=== PATIENT | male | born 1965 | race Caucasian/White ===

== ENCOUNTER 2022-12-15 09:10 | Emergency (ER) | payer OTHER, SELFPAY ==
[2022-12-15 09:11] VITALS: BP 209/101; PULSE 94; RESP 16; TEMP 36.6; O2SAT 100; BMI 23.9
--- NOTE | 2022-12-15 09:13 | ED.RN ---
VERIFIED PT SS#, ADDRESS, FULL NAME INCLUDING MIDDLE, ALL ACCURATE. BIRTHDATE WAS ON EXISITING CHART 1965. PT REPORTS HIS BIRTHDATE IS 1965
--- NOTE | 2022-12-15 09:26 | EKG12_ITS ---
Test Reason : DIZZINESS Blood Pressure : / mmHG Vent. Rate : 078 BPM Atrial Rate : 078 BPM P-R Int : 158 ms QRS Dur : 088 ms QT Int : 358 ms P-R-T Axes : 063 017 053 degrees QTc Int : 408 ms Normal sinus rhythm with sinus arrhythmia Normal ECG Confirmed by KAIA BONILLA, JOÃO ([id number]), commercial production editor TRINA KEMP ([id number]) on 12/18/2022 11:17:47 AM Referred By: Confirmed By:JOÃO MARTI MD
--- NOTE | 2022-12-15 09:27 | EX.ED.DYSGE1 ---
HPI History of Present Illness Chief Complaint: Hypertension Detail of Chief Complaint: Not feeling right. Purchased a blood pressure machine. Pressures elevated Informant: patient Onset/Context/Timing Onset: Today and Yesterday Context: - (Unknown) Timing: Continuous Quality: Not feeling right Location: Generalized Current Severity: Mild Maximum Severity: Moderate Worsened by: Nothing Relieved by: Nothing Associated Symptoms Associated Symptoms: Nothing Narrative Narrative: Patient is a 56-year-old male who is a smoker and drinks heavily on weekends who presents because of multiple elevated blood pressure readings. Has not seen a physician in 30 years. He denies drug use. He complains of head fullness. Does not complain of headache. He denies double vision, blurred vision loss of vision. He denies ringing's ears or decreased hearing. He denies trouble with speech or swallowing. He denies problems with balance or coordination. He denies weakness of his upper or lower extremities. He denies altered sensation of his upper or lower extremities. He states he has not had a drink since Wednesday. Prior similar symptoms: No Recent Illness/Hospitalization: No PFSH PFSH Medical History no medical history no medical history Home Medications lisinopril 10 mg tablet 10 mg PO DAILY #30 tabs 12/15/22 [Rx Last Taken Unknown] Allergy/AdvReac Type Severity Reaction Status Date / Time No Known Allergies Allergy Verified 12/15/22 09:11 Social History (Updated 12/15/22 @ 09:[address] Jcarlos El MD) household members: none Smoking Status: Current every day smoker tobacco type: cigarettes alcohol intake: current alcohol intake frequency: 3 or more drinks per day substance use type: does not use ROS ROS ED Constitutional Constitutional ED: Denies chills, fever(s), subjective, sweats or weight loss Eyes Eyes: Denies blurry vision, change in vision or diplopia ENT ENT ED: Denies ear pain, rhinorrhea or sore throat Cardiovascular Cardiovascular: Denies chest pain, palpitations or racing heartbeat Respiratory/Chest Respiratory/Chest: Denies cough, dyspnea or dyspnea on exertion Gastrointestinal Gastrointestinal: Denies abdominal pain, nausea or vomiting Genitourinary Genitourinary ED: Denies dysuria, hematuria or urinary frequency Musculoskeletal Musculoskeletal: Reports other Details: Chronic left pectoral/shoulder pain due to prior injury ; Denies arthralgias, back pain, myalgias or neck pain Integumentary Denies rash Neurologic Neurologic: Reports headache(s); Denies paresthesias or weakness Psychiatric Psychiatric: Denies anxiety Hematologic/Lymphatic Hematologic/Lymphatic: Reports systems reviewed and no addt'l complaints, except as documented EXAM Physical Exam Const Vital Signs: 12/15/22 09:11 12/15/22 09:52 12/15/22 10:30 Temperature 97.8 F Temperature Source Temporal Pulse Rate 94 66 Respiratory Rate 16 16 Respiratory Pattern Normal Blood Pressure 209/101 H 151/90 H Blood Pressure Mean 137 110 Pulse Ox 100 98 Oxygen Delivery Method Room Air Room Air 12/15/22 11:30 Temperature Temperature Source Pulse Rate 70 Respiratory Rate 16 Respiratory Pattern Blood Pressure 158/98 H Blood Pressure Mean 118 Pulse Ox 98 Oxygen Delivery Method Room Air Positive well nourished and well developed General Appearance ED: well developed and NAD; Negative for cyanotic, diaphoretic or pallor HEENT Reports dry mucous membranes HEENT Narrative: Head is atraumatic normocephalic. Ears are normal. TMs are normal. Nares patent. Uvula is midline. There is no deviation tongue with protrusion. Mouth ED: Yes dry mucous membranes Mouth: dry mucous membranes Eyes PERRL and EOMs intact bilaterally Neck no lymphadenopathy, supple and no JVD Neck Narrative: No carotid bruit right or left Chest Wall inspection of chest normal and palpation of chest normal Resp normal respiratory effort and clear to auscultation bilaterally Cardio regular rate, regular rhythm, S1 normal heart sound, S2 normal heart sound and no murmurs GI normal to inspection, nondistended, normoactive bowel sounds, non-tender, non-distended and no masses; Negative for hepatosplenomegaly Back/Spine no CVA tenderness Extremity normal to inspection General Extremety ED: Negative for edema or tenderness General Extremity: Negative for edema Neuro oriented x3, CN's II-XII intact bilaterally and no sensory deficits noted Neuro Narrative: There is no dysmetria. Bicep, brachialis, triceps, patella and ankle reflex are 2+ and symmetric. There is no clonus?. Patient is awake but not necessarily alert. He stated he was 57 years of age when he is 56. He did know month, day of the week, day of the month. Motor Exam: strength 5/5 throughout Psych mental status grossly normal Skin no rashes or lesions noted and skin turgor normal General Skin Exam: Negative for elasticity normal, jaundice or pallor MDM MDM MDM Narrative Medical decision making narrative: Since patient's complaint of head discomfort has nystagmus with elevated blood pressure and has not seen a physician in 30 years we will obtain baseline blood work EKG and CT looking for evidence of endorgan dysfunction. We will also monitor blood pressure. His neuro exam was nonfocal. History & Record Review Additional record(s) reviewed:: No prior records Lab Data Attestation: I reviewed the patient's lab results. Lab results narrative: There is no evidence of endorgan dysfunction. Labs: Laboratory Results - last 24 hr 12/15/22 12/15/22 09:50 10:34 WBC 4.9 RBC 5.31 Hgb 15.4 Hct 46.3 MCV 87.2 MCH 29.0 MCHC 33.3 RDW Std Deviation 40.6 RDW Coeff of Adrian 12.8 Plt Count 302 MPV 10.0 Immature Gran % (Auto) 0.200 Neut % (Auto) 62.3 Lymph % (Auto) 26.5 Rankin % (Auto) 8.6 Eos % (Auto) 2.0 Baso % (Auto) 0.4 Absolute Neuts (auto) 3.1 Absolute Lymphs (auto) 1.30 Nucleated RBC % 0 Sodium 137 Potassium 4.2 Chloride 105 Carbon Dioxide 27.0 Anion Gap 5 BUN 17 Creatinine 0.83 Estim Creat Clear Calc 100.17 Est GFR (MDRD) Af Amer 122 Est GFR (MDRD) Non-Af 101 BUN/Creatinine Ratio 20.5 H Glucose 104 Calcium 9.2 Urine Color Yellow Urine Clarity Clear Urine pH 8.0 Ur Specific [place] 1.015 Urine Protein 15 H Urine Glucose (UA) Normal Urine Ketones Negative Urine Occult Blood Negative Urine Nitrite Negative Urine Bilirubin Negative Urine Urobilinogen Normal Ur Leukocyte Esterase 25 H Urine RBC 0 SEEN Urine WBC 0-5 SEEN Ur Squamous Epith Cells 0 SEEN Urine Bacteria 0 SEEN Urine Mucus 0 SEEN Ethyl Alcohol < 3.0 Radiography Diagnostic Testing: Clinical Impression(s) from Imaging Studies Brain CT 12/15/22 09:54 IMPRESSION: No acute intracranial process. Electronically Signed: Maco Ragland MD at 10:28 EDT , EKG Initial EKG: Attestation: I personally reviewed and interpreted this EKG as follows: Interpretation: Sinus Rhythm (Rate is 78. The EKG is normal. SC interval is 158 ms. Cures duration 88 ms. QT duration 3 to 58 ms. [place] is normal) Treatment and Re-Evaluation :: Patient's work-up is unremarkable and pressure has come down to 158/98 without treatment he will be discharged home with prescription for lisinopril. He was referred to Dr. Weaver since he does not have a physician. Furthermore patient did not require treatment since he has no evidence of endorgan dysfunction. Discharge Plan Triage Chief Complaint: Hypertension ED Provider: Jcarlos El Dx/Rx/DC Orders Clinical Impression: Alcohol use, Generalized weakness, Tobacco use, Hypertension Instructions: ED Hypertension New Begin Treatment Prescriptions: New lisinopril 10 mg tablet 10 mg PO DAILY Qty: 30 0RF Primary Care Provider: Care Physician,No Primary Referrals: Luis Varma MD [Med Staff - [place]] - 1-2 Weeks NOT,DEFINED [Non-Staff] - Disposition Disposition: Home, Self Care
--- NOTE | 2022-12-15 09:54 | CT_ITS ---
INDICATION: Headache, high blood pressure, nystagmus EXAMINATION: CT BRAIN - CT Head or Brain W/O Contrast Injection TECHNIQUE: Multiple axial images were obtained of the head without intravenous contrast. A radiation dose optimization technique was used for this scan. IV Contrast dosage and agent: None. RADIATION DOSAGE (If Supplied By Facility): CTDIvol = ( 44.99 ) mGy, DLP = ( 849.54 ) mGycm COMPARISON: No prior examinations are available for comparison. FINDINGS: BRAIN PARENCHYMA: No intra- or extra-axial hemorrhage. No evidence of acute infarct. There is a small left basal ganglia likely due to prominent vascular space or small old lacunar infarct. There is preservation of the rollins/white matter interface. Posterior fossa structures are unremarkable. CSF SPACES: Appropriate for age. No hydrocephalus. Basal cisterns are patent. CALVARIUM, SKULL BASE, PARANASAL SINUSES AND MASTOID AIR CELLS: Clear. No discrete lytic or blastic abnormalities. ORBITS: Both globes, extraocular muscles, optic nerves and retrobulbar fat appear unremarkable. CT/Brain/Head without Contrast IMPRESSION: No acute intracranial process. Electronically Signed: Maco Ragland MD at 10:28 EDT ,
[2022-12-15 10:00] LABS: Absolute Neutrophil Count 3.1 X10^3/uL (2.0-7.7); Basophil# 0.02 X10^3/uL; Basophil% 0.4 % (0-1); Hematocrit 46.3 % (40-54); Hemoglobin 15.4 g/dL (13.0-16.5); Lymphocyte % 26.5 % (19-41); Mean Corp Hgb Conc 33.3 g/dL (32-36); Mean Corpuscular Volume 87.2 fL (80-94); Monocyte# 0.42 X10^3/uL; Monocyte% 8.6 % (0-10); NRBC Flagged by Analyzer 0 % (0-5); Neutrophil # 3.06 X10^3/uL (2.7-7.7); Neutrophil % 62.3 % (47-70); Platelet Count 302 K/mm3 (150-450); RBC Distribution Width CV 12.8 % (11.6-14.6); RBC Distribution Width SD 40.6 fl (35.1-43.9); Red Blood Count 5.31 M/mm3 (4.6-6.2); White Blood Count 4.9 K/mm3 (4.4-11.0)
[2022-12-15 10:15] LABS: Anion Gap 5 (5-15); BUN 17 mg/dL (7-18); BUN/Creat Ratio 20.5 RATIO (10-20); Calcium,Total 9.2 mg/dL (8.5-10.1); Chloride 105 mmol/L (98-107); Creatinine, Serum 0.83 mg/dL (0.70-1.30); EST Glomerular Filtration Rate 101 mL/min (>60); Est Glom Filt Rate - Afr Amer 122 mL/min (>60); Estimated Creatinine Clearance 100.17 ml/min; Glucose 104 mg/dL (74-106); Potassium 4.2 mmol/L (3.5-5.1); Sodium Level 137 mmol/L (136-145)
[2022-12-15 10:30] VITALS: BP 151/90; PULSE 66; RESP 16; O2SAT 98
[2022-12-15 10:41] LABS: Bacteria 0 SEEN /hpf (None Seen); Mucous, Urine 0 SEEN /hpf (<or=2+); Red Blood Cells-Urine 0 SEEN /hpf (0-5); Squamous Epithelial Cells - UA 0 SEEN /hpf (0-5)
[2022-12-15 10:42] LABS: Color, Urine Yellow (Yellow); Glucose, Dipstick Normal (Normal); Ketone-Dipstick Negative (Negative); Leukocyte Esterase-Dipstick 25 /ul (Negative); Nitrite-Dipstick Negative (Negative); Occult Blood-Urine Negative /ul (Negative); Protein-Dipstick 15 mg/dl (Negative); Specific Gravity, Urine 1.015 (1.002-1.030); Urine Bilirubin Dipstick Negative (Negative); Urine Clarity Clear (Clear); Urine Urobilinogen Normal (Normal)
[2022-12-15 10:48] LABS: White Blood Cells 0-5 SEEN /hpf (0-5)
[2022-12-15 10:51] LABS: Alcohol, Blood (Medical)-Serum < 3.0 mg/dL
[2022-12-15 11:30] VITALS: BP 158/98; PULSE 70; RESP 16; O2SAT 98
[2022-12-15 12:13] VITALS: BP 155/94; PULSE 71; RESP 16; O2SAT 97
== END 2022-12-15 12:13 | disposition home or self-care (01) ==
PROVIDERS: Emergency Provider Emergency Medicine; Visit Provider Emergency Medicine
DX: R53.1 Weakness (principal); I10 Essential (primary) hypertension; F17.210 Nicotine dependence, cigarettes, uncomplicated
CPT/HCPCS: 70450; 80048; 81001; 82077; 85025; 93005; 99283; A4216

== ENCOUNTER → 2023-06-09 | Outpatient (CLI) | payer OTHER, SELFPAY ==
[2023-06-09 10:29] LABS: Erythrocyte Sedimentation Rate 8 mm/hr (0-20)
[2023-06-09 10:47] LABS: Vitamin D,25 Hydroxy 21.5 ng/mL
[2023-06-09 11:13] LABS: ALB/GLOB Ratio 1.1 RATIO (0.9-2.4); AST(SGOT) 25 U/L (15-37); Alanine Aminotransfer ALT/SGPT 47 U/L (16-61); Albumin, Serum 3.9 g/dL (3.2-5.0); Alkaline Phosphatase 98 U/L (45-117); Anion Gap 4 (5-15); BUN 17 mg/dL (7-18); BUN/Creat Ratio 22.4 RATIO (10-20); Calcium,Total 8.9 mg/dL (8.5-10.1); Chloride 106 mmol/L (98-107); Cholesterol 218 mg/dL (200); Creatinine, Serum 0.76 mg/dL (0.70-1.30); EST Glomerular Filtration Rate 112 mL/min (>60); Est Glom Filt Rate - Afr Amer 135 mL/min (>60); Globulin 3.6 g/dL (2.2-4.2); Glucose 97 mg/dL (74-106); High Density Lipoprotein 49 mg/dL; PSA,Total - Annual Screen 3.49 ng/mL (0.00-4.00); Potassium 4.1 mmol/L (3.5-5.1); Protein, Total 7.5 g/dL (6.4-8.2); Sodium Level 136 mmol/L (136-145); Thyroid Stim Hormone (TSH) 1.71 uIU/mL (0.358-3.74); Triglycerides 94 mg/dL; Very Low Density Lipoprotein 19 mg/dL (5-40)
== END | disposition home or self-care (01) ==
LOC: MFPLAB 08:28
PROVIDERS: Visit Provider Family Medicine
DX: I10 Essential (primary) hypertension (principal); L40.9 Psoriasis, unspecified; F10.10 Alcohol abuse, uncomplicated; Z12.5 Encounter for screening for malignant neoplasm of prostate
CPT/HCPCS: 36415; 80053; 80061; 82306; 84153; 84443; 85652; G0103

== ENCOUNTER → 2023-07-14 | Outpatient (CLI) | payer OTHER, SELFPAY ==
--- NOTE | 2023-07-14 14:20 | CT_ITS ---
STUDY: LOW DOSE CT LUNG CANCER SCREENING REASON FOR EXAM: Male, 57 years old. 30+ year smoker. Patient smokes half a pack per day for 39 years. RADIATION DOSAGE (If Supplied By Facility): CTDIvol = ( 2.39 ) mGy, DLP = ( 79.52 ) mGycm TECHNIQUE: No contrast was administered. Low dose technique was utilized (average mAS-38 and kVp 120). 1.25 mm axial source images with a slice interval of 1.25-mm were reconstructed in lung windows. 2.5 mm axial source images with a slice interval of 2.5-mm were reconstructed in lung windows. 5.0 mm axial source images with a slice interval of 5.0-mm were reconstructed in soft tissue windows. COMPARISON: None. NODULES: No suspicious nodules are present. Emphysema: Hyperinflation. Mild degree of emphysematous changes are seen. Endobronchial lesion: None Aorta: Atherosclerotic plaque formation of the aortic arch. CORONARY ARTERIES: Coronary artery calcification is seen. Heart: Unremarkable Pulmonary artery: Markedly Mediastinal nodes: Small mediastinal lymph nodes. Other chest and abdominal findings: CT/Low Dose CT Lung Screening IMPRESSION: Lung-RADS category 2 - Continue annual screening with LDCT in 12 months. IMPORTANT NOTES FOR USE: ACR Lung-RADS Version 1.1 Assessment Categories Release Date: 2018 Category: Coded 0-4 bases on nodule(s) with highest degree of suspicion. Negative screen is defined as categories 1 and 2; a positive screen is defined as categories 3 and 4. Category 3 and 4A nodules that are unchanged on interval CT should be coded as category 2, and individuals returned to screening in 12 months. Category 4X: Category 3 or 4 nodules with additional imaging findings that increase the suspicion of lung cancer, such as spiculation, GGN that doubles in size in 1 year, enlarged lymph notes, etc. Category Modifiers: S (significant finding unrelated to lung cancer) Electronically Signed: Giuseppe Howe MD at 14:45 EDT ,
== END | disposition home or self-care (01) ==
LOC: CT 14:20
PROVIDERS: PCP Family Medicine; Referring Provider Family Medicine; Visit Provider Family Medicine
DX: Z12.2 Encounter for screening for malignant neoplasm of respiratory organs (principal); Z72.0 Tobacco use
CPT/HCPCS: 71271

== ENCOUNTER 2023-08-09 13:52 | Day surgery (SDC) | payer OTHER, SELFPAY ==
[2023-08-09] MEDS: Lactated Ringers 1,000 ML 15 ML IV (14:05)
[2023-08-09 14:06] VITALS: BP 136/85; PULSE 99; RESP 16; TEMP 36.8; O2SAT 98; BMI 25.0
--- NOTE | 2023-08-09 14:48 | H&P.OPEN ---
HPI - General HPI Narrative RODNEY HAYES, is a 57 M who presents for screening colonoscopy patient has never had a colonoscopy in the past. He denies any abdominal pain or blood in the stool. He has no family history of colon cancer. He is on no blood thinners. PFSH Medical History (Updated 08/04/23 @ 12:02 by Yeimi Andrews) Gastric reflux Heartburn Hypertension Smoker Wears partial dentures Home Medications lisinopril 10 mg tablet 10 mg PO DAILY #30 tabs 12/15/22 [Rx Last Taken 08/09/23] Allergy/AdvReac Type Severity Reaction Status Date / Time No Known Allergies Allergy Verified 08/09/23 14:06 Family History (Updated 08/03/23 @ 08:47 by Erna Jay) Mother Alzheimer disease Father DDD (degenerative disc disease) Surgical History (Updated 08/04/23 @ 12:02 by Yeimi Andrews) Hx of shoulder surgery Social History household members: none Smoking Status: Current every day smoker tobacco type: cigarettes alcohol intake: current alcohol intake frequency: 3 or more drinks per day substance use type: does not use Past Medical/Surgical History Planned Operation Planned Operative Procedure/s: CSCOPE Previous Hospitalizations/Surgeries HX Hospitalizations: No Any Problems With Anesthesia: No You/Your Family Experience Fever (Hyperthermia) With Anes: No Cholinesterase deficiency: No Cardiovascular Hx Hypertension: Yes (CONTROLLED WITH MED) Respiratory Hx Sleep Apnea: No Hx Respiratory Tract Infection/Cold (presently): No Do You Snore Loudly (louder than talking or can be heard): No Do You Often Feel Tired/ Fatigued/ Sleepy Dring Daytime?: No Has Anyone Observed You Stop Breathing During Sleep?: No Result (for STOP score): Negative Smoking Status: Current every day smoker Neurological Does patient have nerve stimulator: No Reproduction : No Miscellaneous Recent Exposure to Contagious Disease: No Allergies No Known Allergies Allergy (Verified 08/09/23 14:06) Discharge Is Pt Admitted From a Alf, or a Half-Way: No After D/C, Where Do you Plan to Go: Return Home Vital Signs Vital Signs Vital Signs: 08/09/23 14:06 08/09/23 14:06 Temperature 98.2 F Temperature Source Temporal Pulse Rate 99 Respiratory Rate 16 Respiratory Pattern Normal Blood Pressure 136/85 H Blood Pressure Mean 102 Blood Pressure Source Monitor Blood Pressure Position Semi-Fowlers Blood Pressure Location Right Arm Pulse Ox 98 Oxygen Delivery Method Room Air Weight Weight: 169 lb 6.4 oz Body Mass Index (BMI) 25.0 Physical Exam Const alert and oriented x3 HEENT normocephalic Eyes PERRL Resp normal respiratory effort and normal air movement Cardio regular rate and regular rhythm GI soft to palpation, non-tender and non-distended Extremity normal to inspection Assessment & Plan Assessment/Plan (1) Encounter for screening for malignant neoplasm of colon: PLAN: I explained endoscopy in detail to the patient. I explained the risks including but not limited to stroke or heart attack with anesthesia, perforation of the GI tract, bleeding, infection. I explained that any of these could necessitate further emergency surgery. The patient understands and all questions were answered sufficiently. The patient wishes to proceed with procedure. Andrez Hilliard MD Pager: [facility] [address] [place] [address] [address] [place] [address] Office: Surgery Risks - Colonoscopy Risks Include but are not Limited To: Risks include but are not limited to: Bleeding, perforation requiring further surgery, inability to complete colonoscopy requiring barium enema.
[2023-08-09 15:15] VITALS: BP 103/79; BP 136/85; PULSE 83; RESP 16; TEMP 37.6; O2SAT 100
--- NOTE | 2023-08-09 15:16 | OP.COLON_ITS ---
Patient Name: Reilly Moon Procedure Date: 08/09/2023 2:48 PM Date of : 1965 Age: 57 Procedure: Colonoscopy Indications: Screening for colorectal malignant neoplasm Providers: Andrez Hilliard MD Referring MD: Luis Varma Medicines: Propofol per Anesthesia Patient Profile: This is a 57 year old male. Refer to note in patient chart for documentation of history and physical. Last Colonoscopy: none. The patient's first colonoscopy is today. Complications: No immediate complications. Procedure: Pre-Anesthesia Assessment: - Prior to the procedure, a History and Physical was performed, and patient medications and allergies were reviewed. The patient's tolerance of previous anesthesia was also reviewed. The risks and benefits of the procedure and the sedation options and risks were discussed with the patient. All questions were answered, and informed consent was obtained. Prior Anticoagulants: The patient has taken no anticoagulant or antiplatelet agents. After reviewing the risks and benefits, the patient was deemed in satisfactory condition to undergo the procedure. After I obtained informed consent, the scope was passed under direct vision. Throughout the procedure, the patient's blood pressure, pulse, and oxygen saturations were monitored continuously. The Colonoscope was introduced through the anus and advanced to the cecum, identified by appendiceal orifice and ileocecal valve. The colonoscopy was performed without difficulty. The patient tolerated the procedure well. The quality of the bowel preparation was good. The ileocecal valve, appendiceal orifice, and rectum were photographed. Scope In: 3:00:09 PM Scope Withdrawal Time 0 hours 6 minutes 1 second Scope Out: 3:11:45 PM Total Procedure Duration Time 0 hours 11 minutes 36 seconds Findings: The entire examined colon appeared normal on direct and retroflexion views. Impression: - The entire examined colon is normal on direct and retroflexion views. - No specimens collected. Recommendation: - Discharge patient to home. - Resume previous diet. - Continue present medications. - Repeat colonoscopy in 10 years for screening purposes. Procedure Code(s): --- Professional --- 74700, Colonoscopy, flexible; diagnostic, including collection of specimen(s) by brushing or washing, when performed (separate procedure) Diagnosis Code(s): --- Professional --- Z12.11, Encounter for screening for malignant neoplasm of colon CPT copyright 2021 [employer]. All rights reserved. The codes documented in this report are preliminary and upon tax expert review may be revised to meet current compliance requirements. Andrez Hilliard MD 08/09/2023 3:16:12 PM This report has been signed electronically. Number of Addenda: 0 Note Initiated On: 08/09/2023 2:48 PM
--- NOTE | 2023-08-09 15:17 | OP.CCLET_ITS ---
08/09/2023 Luis Varma [address] [place] [address] Re : Colonoscopy procedure for Reilly Moon Dear Dr. Varma This procedure was performed on Wednesday, August 09, 2023. My impressions and recommendations are as follows: Impressions : - The entire examined colon is normal on direct and retroflexion views. - No specimens collected. Recommendations : - Discharge patient to home. - Resume previous diet. - Continue present medications. - Repeat colonoscopy in 10 years for screening purposes. My findings are described in the full procedure note, which is enclosed. If I can be of further assistance, please feel free to contact me at Doctor phone number(s): , Work: . Sincerely, Andrez Hilliard MD 08/09/2023 3:16:12 PM This report has been signed electronically.
[2023-08-09 15:20] VITALS: BP 118/79; BP 136/85; PULSE 73; RESP 16; O2SAT 95
[2023-08-09 15:25] VITALS: BP 117/78; BP 136/85; PULSE 69; RESP 16; O2SAT 99
[2023-08-09 15:30] VITALS: BP 120/75; BP 136/85; PULSE 66; RESP 16; TEMP 36.7; O2SAT 100
[2023-08-09 15:32] VITALS: BP 136/85
== END 2023-08-09 15:48 | disposition home or self-care (01) ==
LOC: EN 13:53 → AC 13:54
PROVIDERS: PCP Family Medicine; Referring Provider Family Medicine; Visit Provider Surgery
PROC: 0DJD8ZZ Inspection of Lower Intestinal Tract, Via Natural or Artificial Opening Endoscopic (ICD-10-PCS; CPT 45378; principal; 2023-08-09 14:55)
DX: Z12.11 Encounter for screening for malignant neoplasm of colon (principal); I10 Essential (primary) hypertension; F17.210 Nicotine dependence, cigarettes, uncomplicated; Z79.899 Other long term (current) drug therapy
CPT/HCPCS: 45378; J7120; J2405

== ENCOUNTER → 2024-08-04 | Outpatient (CLI) | payer OTHER, SELFPAY ==
[2024-08-04 11:11] LABS: Anion Gap 12 (5-15); BUN 19 mg/dL (4-19); Calcium,Total 9.2 mg/dL (7.6-11.0); Carbon Dioxide 21.7 mmol/L (21.0-32.0); Chloride 105 mmol/L (98-108); Cholesterol 210 mg/dL (<=200); Creatinine, Serum 0.68 mg/dL (0.70-1.20); EST Glomerular Filtration Rate 107 (>60); Glucose 85 mg/dL (70-99); High Density Lipoprotein 35 mg/dL; Low Density Lipoprotein Calc. 157 mg/dL; Potassium 4.3 mmol/L (3.3-5.1); Sodium Level 138 mmol/L (133-145); Triglycerides 92 mg/dL; Very Low Density Lipoprotein 18 mg/dL (5-40); cholesterol:hdl ratio screen 6.03
[2024-08-04 11:56] LABS: PSA,Total - Annual Screen 2.85 ng/mL (0.02-4.00)
== END | disposition home or self-care (01) ==
LOC: MFPLAB 08:10
PROVIDERS: PCP Family Medicine; Visit Provider Nurse Practitioner Family
DX: Z13.1 Encounter for screening for diabetes mellitus (principal); Z13.220 Encounter for screening for lipoid disorders; Z12.5 Encounter for screening for malignant neoplasm of prostate
CPT/HCPCS: 36415; 80048; 80061; 84153; G0103

== ENCOUNTER → 2024-09-30 | Outpatient (CLI) | payer OTHER, SELFPAY ==
--- NOTE | 2024-09-30 09:49 | CT_ITS ---
PROCEDURE: LOW DOSE CT LUNG SCREENING 09/30/2024 REASON FOR EXAM: SCREEN TECHNIQUE: LOW DOSE CT LUNG SCREENING Coronal and Sagittal reconstruction series were provided. One or more dose reduction techniques were used (e.g., Automated exposure control, adjustment of the mA and/or kV according to patient size, use of iterative reconstruction technique). REFERENCE LINK: [employer] Lung-RADS RADIATION DOSE SUMMARY: CTDlvol: 3.02 mGy DLP: 118 mGycm COMPARISON: 07/14/2023. FINDINGS: PULMONARY NODULES: (Only nodules >3mm are reported) Nodules described below are on series 2 unless otherwise specified. Pulmonary Nodules: None. Mild coronary artery calcifications. Normal unenhanced main pulmonary artery and right and left pulmonary arteries. Normal bilateral peripheral pulmonary arteries. Normal thoracic aorta and visualized great vessels. There is no demonstrated aortic aneurysm. Normal heart and pericardium. Normal mediastinum. Normal hilar regions. Normal visualized trachea and bronchi. The lungs are well expanded. Normal pulmonary parenchyma. Normal pleura. Mild diffuse spondylosis. Normal visualized upper abdomen. CT/Low Dose CT Lung Screening IMPRESSION: No pulmonary nodule is identified. No significant change is noted. Coronary artery calcification (CAC) is is present Lung-RADS Category: 2 BENIGN (BASED ON IMAGING FEATURES OR INDOLENT BEHAVIOR). RECOMMEND 12-MONTH SCREENING LDCT. Other Significant Findings: None. Reading Location[facility] [id number]
--- OUTSIDE RECORDS SUMMARY | 2024-09-30 09:51 | XMS RPT_ITS | CCD ---
Author Organization [facility] Care Team Providers Care Clerical Production Worker Name Role Phone Unavailable Primary Care Provider UnavailDr. Bipin Miramontes Primary Care Provider Erna Jay Attending Provider Unavailable Dr. Bipin Varma Referring Provider Dr. Andrez Hilliard Attending Provider Dr. Andrez Hilliard Other Provider Michelle DATA PROCESSING EQUIPMENT REPAIRER, Cheyanne Attending Unavailable Bipin Varma Primary Care Unavailable Mihcelle DATA PROCESSING EQUIPMENT REPAIRER, Cheyanne Attending Unavailable Michelle DATA PROCESSING EQUIPMENT REPAIRER, Cheyanne Referring Unavailable Bipin Varma Primary Care Unavailable Medications Current Medications Medication Drug Class(es) Dates Sig (Normalized) Sig (Original) lisinopril 10 mg oral tablet (4 sources) Angiotensin Converting Enzyme Inhibitor Start: 12-15-2022 take 10 mg by mouth once daily Lisinopril Active 10 MG PO DAILY December 15, 2022 12:00am Problems Problem Classification Problem Date Documented Da te Episodic/Chronic Essential hypertension (4 sources) Hypertensive disorder; Translations: [Essential (primary) hypertension] 12-15-2022 Chronic Malaise and fatigue (4 sources) Asthenia; Translations: [Weakness] 12-15-2022 Episodic Other screening for suspected conditions (not mental disorders or infectious disease) (4 sources) Patient encounter status; Translations: [Encounter for screening for malignant neoplasm of colon] Onset: 08-09-2024 08-03-2023 Episodic Residual codes; unclassified (4 sources) Current drinker; Translations: [Other specified health status] 12-15-2022 Episodic Residual codes; unclassified (4 sources) Tobacco use and exposure - finding; Translations: [Tobacco use] 12-15-2022 Episodic Residual codes; unclassified (1 source) Procedure not done; Translations: [Procedure and treatment not carried out, unspecified reason] 12-15-2022 Episodic Results Test Name Value Interpretation Reference Range Facility Basic Metabolic Profile (BMP )on 08-04-2024 BUN/CRE 28.0 RATIO High 10-20 [facility] Comment on above: Order Comment: Order Date: 07/10/24 Order Info: 666-04 - BMP Order Info: - LIPID Order Info: 2856-04 - PSA Performed By: #### L [id number], L500.4100, L500.2500 #### [facility] [address] [place], [address] Calcium [Mass/Vol] 9.2 mg/dL Normal 7.6-11.0 [facility] Comment on above: Order Comment: Order Date: 07/10/24 Order Info: 666-04 - BMP Order Info: - LIPID Order Info: [id number] - PSA Performed By: #### L [id number], L500.4100, L500.2500 #### [facility] [address] [place], [address] Chloride [Moles/Vol] 105 mmol/L Normal 98-108 [facility] Comment on above: Order Comment: Order Date: 07/10/24 Order Info: 666-04 - BMP Order Info: - LIPID Order Info: [id number] - PSA Performed By: #### L [id number], L500.4100, L500.2500 #### [facility] [address] [place], [address] CO2 [Moles/Vol] 21.7 mmol/L Normal 21.0-32.0 [facility] Comment on above: Order Comment: Order Date: 07/10/24 Order Info: 666-04 - BMP Order Info: - LIPID Order Info: [id number] - PSA Performed By: #### L [id number], L500.4100, L500.2500 #### [facility] [address] [place], [address] Creatinine [Mass/Vol] 0.68 mg/dL Low 0.70-1.20 [facility] Comment on above: Order Comment: Order Date: 07/10/24 Order Info: 666-04 - BMP Order Info: - LIPID Order Info: 1 - PSA Performed By: #### L [id number], L500.4100, L500.2500 #### [facility] [address] [place], [address] GAP 12 Normal 5-15 [facility] Comment on above: Order Comment: Order Date: 07/10/24 Order Info: 666-04 - BMP Order Info: - LIPID Order Info: [id number] - PSA Performed By: #### L [id number], L500.4100, L500.2500 #### [facility] [address] [place], [address] GFR/1.73 sq M.predicted among non-blacks MDRD (S/P/Bld) [Vol rate/Area] 107 mL/min/{1.73_m2} Normal >60 [facility] Comment on above: Order Comment: Order Date: 07/10/24 Order Info: 666-04 - BMP Order Info: [id number] - LIPID Order Info: 2856-04 - PSA Result Comment: mL/m in/1.73m2 CKD-EPI Creatinine Equation (2020) Performed By: #### L [id number], L500.4100, L500.2500 #### [facility] [address] [place], [address] Glucose [Mass/Vol] 85 mg/dL Normal 70-99 [facility] Comment on above: Order Comment: Order Date: 07/10/24 Order Info: 666-04 - BMP Order Info: [id number] - LIPID Order Info: 2856-04 - PSA Performed By: #### L [id number], L500.4100, L500.2500 #### [facility] [address] [place], [address] Potassium [Moles/Vol] 4.3 mmol/L Normal 3.3-5.1 [facility] Comment on above: Order Comment: Order Date: 07/10/24 Order Info: 666-04 - BMP Order Info: - LIPID Order Info: [id number] - PSA Performed By: #### L [id number], L500.4100, L500.2500 #### [facility] [address] [place], [address] Sodium [Moles/Vol] 138 mmol/L Normal 133-145 [facility] Comment on above: Order Comment: Order Date: 07/10/24 Order Info: 666-04 - BMP Order Info: - LIPID Order Info: [id number] - PSA Performed By: #### L [id number], L500.4100, L500.2500 #### [facility] [address] [place], [address] Urea nitrogen [Mass/Vol] 19 mg/dL Normal 4-19 [facility] Comment on above: Order Comment: Order Date: 07/10/24 Order Info: 666-04 - BMP Order Info: - LIPID Order Info: [id number] - PSA Performed By: #### L [id number], L500.4100, L500.2500 #### [facility] [address] [place], [address] Lipid Profileon 08-04-2024 CHOL:HDL 6.03 Normal [facility] Comment on above: Order Comment: Order Date: 07/10/24 Order Info: 666-04 - BMP Order Info: - LIPID Order Info: [id number] - PSA Performed By: #### L [id number], L500.4100, L500.2500 #### [facility] [address] [place], [address] Cholesterol [Mass/Vol] 210 mg/dL High <=200 [facility] Comment on above: Order Comment: Order Date: 07/10/24 Order Info: 06 - BMP Order Info: [id number] - LIPID Order Info: 2856-04 - PSA Result Comment: Chol esterol level, Desirable <200 mg/dL Borderline high cholesterol 200-239 mg/dL High cholesterol >=240 mg/dL Recommendations of the NCEP Adult Treatment Panel for the following risk-cutoff thresholds for the [place] population. Performed By: #### L [id number], L500.4100, L500.2500 #### [facility] [address] [place], [address] Cholesterol in HDL [Mass/Vol] 35 mg/dL Low [facility] Comment on above: Order Comment: Order Date: 07/10/24 Order Info: 06 - BMP Order Info: - LIPID Order Info: [id number] - PSA Result Comment: Virginie onal Cholesterol Education Program (NCEP) guidelines: <40 mg/dL: Low HDL-cholesterol (major risk factor for CHD) >= 60 mg/dL: High HDL-cholesterol (negative risk factor for CHD) HDL-cholesterol is affected by a number of factors, e.g. smoking, exercise, hormones, sex and age. Performed By: #### L [id number], L500.4100, L500.2500 #### [facility] [address] [place], [address] Cholesterol in LDL [Mass/Vol] 157 mg/dL Normal [facility] Comment on above: Order Comment: Order Date: 07/10/24 Order Info: 0667 - BMP Order Info: [id number] - LIPID Order Info: [id number] - PSA Result Comment: Bord jcewrj=905-988 mg/dL Higher Kpwo=404 mg/dL or greater Performed By: #### L [id number], L500.4100, L500.2500 #### [facility] [address] [place], [address] Cholesterol in VLDL [Mass/Vol] 18 mg/dL Normal 5-40 [facility] Comment on above: Order Comment: Order Date: 07/10/24 Order Info: [id number] - BMP Order Info: [id number] - LIPID Order Info: 2856-04 - PSA Performed By: #### L [id number], L500.4100, L500.2500 #### [facility] [address] [place], [address] Triglyceride [Mass/Vol] 92 mg/dL Normal [facility] Comment on above: Order Comment: Order Date: 07/10/24 Order Info: 06 - BMP Order Info: - LIPID Order Info: [id number] - PSA Result Comment: The drugs N-Acetylcysteine and Metamizole may falsely depress this assay. Normal range: <150 mg/dL Borderline High: 150-199 mg/dL High: 200-499 mg/dL Very High: >500 mg/dL Performed By: #### L [id number], L500.4100, L500.2500 #### [facility] [address] [place], [address] PSA,Total - Annual Screenon 08-04-2024 PSA,TOT SCREEN 2.85 ng/mL Normal 0.02-4.00 [facility] Comment on above: Order Comment: Order Date: 07/10/24 Order Info: [id number]- - BMP Order Info: [id number] - LIPID Order Info: [id number] - PSA Result Comment: This test was performed using the [employer] tPSA method. Measured values of a patient??sample can vary depending on the testing procedure used. PSA values determined on patient samples by different testing procedures cannot be used interchangeably. If there is a change in PSA assays while monitoring therapy, sequential testing should be performed to confirm baseline values. Performed By: #### L [id number], L500.4100, L500.2500 #### [facility] [address] [place], [address] Basophil percentageOrdered B y: Luis Varma on 06-09-2023 Bilirubin [Mass/Vol] 0.50 mg/dL 0.20-1.00 [facility] Comment on above: For patients on eltr ombopag therapy, use of Dimension [place] TBIL is not recommended. Chloride [Moles/Vol] 106 mmol/L 98-107 [facility] Cholesterol [Mass/Vol] 218 mg/dL <200 [facility] Comment on above: <200 mg/dL Desirable 200-240 mg/dL Borderline >240 mg/dL High Risk Glucose [Mass/Vol] 97 mg/dL 74-106 [facility] Potassium [Moles/Vol] 4.1 mmol/L 3.5-5.1 [facility] Protein [Mass/Vol] 7.5 g/dL 6.4-8.2 [facility] Sodium [Moles/Vol] 136 mmol/L 136-145 [facility] Triglyceride [Mass/Vol] 94 mg/dL <199 [facility] Comment on above: The drugs N-Acetylcy steine and Metamizole may falsely depress this assay.Serum Triglycerides Reference Interval Normal <150 mg/dL Borderline high 150 - 199 mg/dL High 200 - 499 mg/dL Very High > or = 500 mg/dL Erythrocyte sedimentation ra teOrdered By: Luis Varma on 06-09-2023 ESR (Bld) [Velocity] 8 mm/h 0-20 [facility] - Chemistry and C hemistry - challengeOrdered By: Luis Varma on 06-09-2023 Albumin/Globulin [Mass ratio] 1.1 {ratio} 0.9-2.4 [facility] ALP [Catalytic activity/Vol] 98 U/L 45-117 [facility] ALT [Catalytic activity/Vol] 47 U/L 16-61 [facility] Cholesterol in HDL [Mass/Vol] 49 mg/dL >40 [facility] Comment on above: The drugs N-Acetylcy steine and Metamizole may falsely depress this assay. Reference Range HDL <40 mg/dL Low HDL Cholesterol HDL >or= 60 mg/dL High HDL Cholesterol Cholesterol in LDL [Mass/Vol] 150 mg/dL 0-130 [facility] CO2 [Moles/Vol] 26.0 mmol/L 21.0-32.0 [facility] Globulin (S) [Mass/Vol] 3.6 g/dL 2.2-4.2 [facility] Urea nitrogen/Creatinine [Mass ratio] 22.4 mg/mg 10-20 [facility] No Panel InformationOrdered By: Luis Varma on 06-09-2023 Estimated GFR (MDRD) Amer 135 mL/min >60 [facility] Comment on above: GFR Calc Estimated GFR (MDRD) Non-Af Amer 112 mL/min >60 [facility] Comment on above: Non- GFR Calc Prostate Specific Antigen Screen 3.49 ng/mL 0.00-4.00 [facility] Comment on above: This test was perfor med using the TPSA assay method for [employer] chemistry system. Values obtained with differentassay methods cannot be used interchangably.When changing PSA assays in the course of monitoring apatient, additional sequential testing should be carriedout to confirm baseline values. Vitamin D 25-Hydroxy 21.5 ng/mL [facility] Comment on above: Vitamin D 25(OH) Sta tus Range Deficiency <20 ng/mL (50nmol/L) Insufficiency 20 - 30 ng/mL (50 - 75 nmol/L) Sufficiency 30 - 100 ng/mL (75 - 250 nmol/L) Toxicity >100 ng/mL (>250 nmol/L) VLDL Cholesterol 19 mg/dL 5-40 [facility] Serum or plasma calcium thuy urement (mass/volume)Ordered By: Luis Varma on 06-09-2023 Calcium [Mass/Vol] 8.9 mg/dL 8.5-10.1 [facility] Serum or plasma creatinine m easurement (mass/volume)Ordered By: Luis Varma on 06-09-2023 Creatinine [Mass/Vol] 0.76 mg/dL 0.70-1.30 [facility] Comment on above: The validity of the calculated GFR & GFRAA in patients over 70 years has not been determined. Clinical correlation is essential. Serum or plasma thyroid stim ulating hormone (TSH) measurement (units/volume)Ordered By: Luis Varma on 06-09-2023 TSH Qn 1.71 uIU/mL 0.358-3.74 [facility] Serum or plasma urea nitroge n measurement (mass/volume)Ordered By: Luis Varma on 06-09-2023 Urea nitrogen [Mass/Vol] 17 mg/dL 7-18 [facility] Thin prep Papanicolaou smear with manual screeningOrdered By: Luis Varma on 06-09-2023 Thin prep Papanicolaou smear with manual screening 3.9 g/dL 3.2-5.0 [facility] Thin prep Papanicolaou smear with manual screening 25 U/L 15-37 [facility] Thin prep Papanicolaou smear with manual screening 4 5-15 [facility] Absolute lymphocyte countOrd ered By: Jcarlos El on 12-15-2022 Lymphocytes Auto (Unsp spec) [#/Vol] 1.30 10*3/uL 0.83-4.51 [facility] Basophil percentageOrdered B y: Jcarlos El on 12-15-2022 Basophil percentage 0-5 SEEN /hpf 0-5 [facility] Basophils/100 WBC (Bld) 0.4 % 0-1 [facility] Chloride [Moles/Vol] 105 mmol/L 98-107 [facility] Eosinophils/100 WBC (Bld) 2.0 % 0-5 [facility] Glucose [Mass/Vol] 104 mg/dL 74-106 [facility] Comment on above: Fasting Glucose resu lt from 100 to 125 mg/dL suggests IMPAIRED HOMEOSTASIS per A.D.A. criteria. Neutrophils (Bld) [#/Vol] 3.1 10*3/uL 2.0-7.7 [facility] Neutrophils/100 WBC (Bld) 62.3 % 47-70 [facility] Potassium [Moles/Vol] 4.2 mmol/L 3.5-5.1 [facility] Sodium [Moles/Vol] 137 mmol/L 136-145 [facility] WBC (Bld) [#/Vol] 4.9 10*3/uL 4.4-11.0 [facility] Bilirubin Test strip Ql (U)O rdered By: Jcarlos El on 12-15-2022 Bilirubin Ql (U) Negative Negative [facility] Blood erythrocytes count (nu mber/volume)Ordered By: Jcarlos El on 12-15-2022 RBC (Bld) [#/Vol] 5.31 10*6/uL 4.6-6.2 [facility] Blood hemoglobin measurement (mass/volume)Ordered By: Jcarlos El on 12-15-2022 Hemoglobin (Bld) [Mass/Vol] 15.4 g/dL 13.0-16.5 [facility] Blood lymphocytes/100 leukoc ytesOrdered By: Jcarlos El on 12-15-2022 Lymphocytes/100 WBC (Bld) 26.5 % 19-41 [facility] Blood monocytes/100 leukocyt esOrdered By: Jcarlos El on 12-15-2022 Monocytes/100 WBC (Bld) 8.6 % 0-10 [facility] Blood platelet mean volumeOr dered By: Jcarlos El on 12-15-2022 Platelet mean volume (Bld) [Entitic vol] 10.0 fL 6.2-12.0 [facility] CNOVon 12-15-2022 CNOV Office Visit (UCWSTR) ---- NAHOMY HAYES ([id number]) 1965 M Date Time Provider Department 12/15/22 9:00 AM AVI BETANCUR [facility] During your visit today, we recorded the following information about you: Blood pressure 204/100 Avi Betancur APRN.JOB PLACEMENT SPECIALIST 12/15/2022 9:19 AM Signed Nontoxic-appearing male presents urgent care chief complaint high BP. Duration of symptoms last few days. Associated symptoms fatigue transient headache. Patient states this does not feel well. States he did drink a lot of alcohol over the weekend and thought it was due to this. Did take his blood pressure last night was 170s over 100. Presents today for evaluation. On evaluation BP was 204/100. Patient is not established with a PCP has not been seen for many years. Denies any medical history. With patient presenting symptoms I recommended patient be seen ED for further evaluation care. EMS transport was offered patient declined transport. Will be seen at [facility]. Verbalized understand agrees with plan of care. Avi Betancur APRN.JOB PLACEMENT SPECIALIST Allergies As of Date: 12/15/2022 (No Known Allergies) Date Reviewed: 12/15/2022 Reviewed by: Emma Roper - Fully Assessed Reason for Visit: Blood Pressure [15] Primary Visit Diagnosis:Procedure not carried out [Z53.9] Problem List As Of Date: 12/15/2022 (None) Encounter Status:Closed by AVI BETANCUR on 12/15/[address] [facility] Determination of erythrocyte mean corpuscular volume (MCV)[facility] MCV (RBC) [Entitic vol] 87.2 fL 80-94 [facility] Hematocrit Auto (Bld) [Volum e fraction]Ordered By: [facility] on 12-15-2022 Hematocrit (Bld) [Volume fraction] 46.3 % 40-54 [facility] Ketones Test strip Ql (U)Ord ered By: [facility] 12-15-2022 Ketones Ql (U) Negative Negative [facility] - Chemistry and C hemistry - challengeOrdered By: [facility] on 12-15-2022 CO2 [Moles/Vol] 27.0 mmol/L 21.0-32.0 [facility] Urea nitrogen/Creatinine [Mass ratio] 20.5 mg/mg 10-20 [facility] - Hematology and Cell countsOrdered By: [facility] 12-15-2022 Erythrocyte distribution width (RBC) [Entitic vol] 40.6 fL 35.1-43.9 [facility] Erythrocyte distribution width (RBC) [Ratio] 12.8 % 11.6-14.6 [facility] Immature granulocytes/100 WBC (Bld) 0.200 % 0.0-0.9 [facility] Comment on above: IG% - Immature Granu locytes (promyelocytes, myelocytes and metamyelocytes) > 1% indicates that a LEFT SHIFT is Present. MCH (RBC) [Entitic mass] 29.0 pg 27.0-32.0 [facility] Nucleated RBC/100 WBC (Bld) [Ratio] 0 % 0-5 [facility] MCHC Auto (RBC) [Mass/Vol]Or dered By: Jcarlos El on 12-15-2022 MCHC (RBC) [Mass/Vol] 33.3 g/dL 32-36 [facility] Mucus LM Ql (Urine sed)Order ed By: Jcarlos El on 12-15-2022 Mucus Ql (Urine sed) 0 SEEN /hpf [facility] Nitrite Test strip Ql (U)Ord ered By: Jcarlos El on 12-15-2022 Nitrite Ql (U) Negative Negative [facility] No Panel InformationOrdered By: Jcarlos El on 12-15-2022 Estimated Creatinine Clearance Calc 100.17 ml/min [facility] Estimated GFR (MDRD) Amer 122 mL/min >60 [facility] Comment on above: GFR Calc Estimated GFR (MDRD) Non-Af Amer 101 mL/min >60 [facility] Comment on above: Non- GFR Calc Ethyl Alcohol Level < 3.0 mg/dL [facility] Comment on above: The serum:whole bloo d ethanol ratio is approximately 1.14and varies slightly with hematocrit. Medical Alcohol reference interval and critical value innon-tolerant individuals; 50 - 100 Impairment 100 Intoxication 100 - 250 Severe Poisoning 250 - 400 Deep/possible fatal coma Platelets bldOrdered By: Jcarlos El on 12-15-2022 Platelets (Bld) [#/Vol] 302 10*3/uL 150-450 [facility] Protein Test strip Ql (U)Ord ered By: Jcarlos El on 12-15-2022 Protein Ql (U) 15 mg/dl Negative [facility] Serum or plasma calcium thuy urement (mass/volume)Ordered By: Jcarlos El on 12-15-2022 Calcium [Mass/Vol] 9.2 mg/dL 8.5-10.1 [facility] Serum or plasma creatinine m easurement (mass/volume)Ordered By: Jcarlos El on 12-15-2022 Creatinine [Mass/Vol] 0.83 mg/dL 0.70-1.30 [facility] Comment on above: The validity of the calculated GFR & GFRAA in patients over 70 years has not been determined. Clinical correlation is essential. Serum or plasma urea nitroge n measurement (mass/volume)Ordered By: Jcarlos El on 12-15-2022 Urea nitrogen [Mass/Vol] 17 mg/dL 7-18 [facility] Squamous epithelial cells de tection in urine sediment by light microscopyOrdered By: Jcarlos El on 12-15-2022 Epithelial cells.squamous LM Ql (Urine sed) 0 SEEN /hpf 0-5 [facility] Thin prep Papanicolaou smear with manual screeningOrdered By: Jcarlos El on 12-15-2022 Thin prep Papanicolaou smear with manual screening 5 5-15 [facility] Urine blood detectionOrdered By: Jcarlos El on 12-15-2022 RBC Ql (U) Negative Negative [facility] RBC Ql (U) 0 SEEN /hpf 0-5 [facility] Urine clarityOrdered By: Jcarlos El on 12-15-2022 Clarity (U) Clear Clear [facility] Urine color determinationOrd ered By: Jcarlos El on 12-15-2022 Color (U) Yellow Yellow [facility] Urine glucose detectionOrder ed By: Jcarlos El on 12-15-2022 Glucose Ql (U) Normal mg/dl Normal [facility] Urine leukocyte esterase det ection by dipstickOrdered By: Jcarlos El on 12-15-2022 Leukocyte esterase Test strip Ql (U) 25 /ul Negative [facility] Urine pHOrdered By: Jcarlos fuller on 12-15-2022 pH (U) 8.0 [pH] 5.0 - 8.0 [facility] Urine sediment bacteria coun t by microscopy (number/high power field)Ordered By: Jcarlos El on 12-15-2022 Bacteria LM.HPF (Urine sed) [#/Area] 0 /[HPF] None Seen [facility] Urine specific gravity measu rementOrdered By: Jcarlos El on 12-15-2022 Specific gravity (U) [Rel density] 1.015 1.002-1.030 [facility] Urobilinogen Auto test strip Ql (U)Ordered By: Jcarlos El on 12-15-2022 Urobilinogen Ql (U) Normal mg/dl Normal [facility] Vital Signs Date Time Vital Sign Value Performing Clinician Faci lity 08-09-2023 15:30-0400 Body temperature 98.1 [degF] Dr. Bipin Varma Work Phone: [facility] 08-09-2023 15:30-0400 Diastolic blood pressure 75 mm[Hg] Dr. Bipin Varma Work Phone: [facility] 08-09-2023 15:30-0400 Heart rate 66 /min Dr. Bipin Varma Work Phone: [facility] 08-09-2023 15:30-0400 Respiratory rate 16 /min Dr. Bipin Varma Work Phone: [facility] 08-09-2023 15:30-0400 SaO2% (BldA) [Mass fraction] 100 % Dr. Bipin Varma Work Phone: [facility] 08-09-2023 15:30-0400 Systolic blood pressure 120 mm[Hg] Dr. Bipin Varma Work Phone: [facility] 08-09-2023 14:06-0400 Body height 175.[address] Bipin Varma Work Phone: [facility] 08-09-2023 14:06-0400 Body mass index (BMI) [Ratio] 25 kg/m2 Dr. Bipin Varma Work Phone: [facility] 08-09-2023 14:06-0400 Body weight 76.[address] Bipin Varma Work Phone: [facility] 08-03-2023 08:52-0400 Body mass index (BMI) [Ratio] 25.8 kg/m2 Dr. Bipin Varma Work Phone: [facility] 08-03-2023 08:52-0400 Body weight 79.[address] Bipin Varma Work Phone: [facility] 12-15-2022 12:13-0400 Diastolic blood pressure 94 mm[Hg] [facility] 12-15-2022 12:13-0400 Heart rate 71 /min [facility] 12-15-2022 12:13-0400 Respiratory rate 16 /min [facility] 12-15-2022 12:13-0400 SaO2% (BldA) [Mass fraction] 97 % [facility] 12-15-2022 12:13-0400 Systolic blood pressure 155 mm[Hg] [facility] 12-15-2022 09:11-0400 Body height 177.8 cm [facility] 12-15-2022 09:11-0400 Body mass index (BMI) [Ratio] 23.9 kg/m2 [facility] 12-15-2022 09:11-0400 Body temperature 97.8 [degF] [facility] 12-15-2022 09:11-0400 Body weight 75.74 kg [facility] 12-15-2022 08:57-0400 Diastolic blood pressure 100 mm[Hg] Avi Betancur AIRPORT PLANNER.JOB PLACEMENT SPECIALIST Work Phone: [facility] 12-15-2022 08:57-0400 Systolic blood pressure 204 mm[Hg] Avi Betancur AIRPORT PLANNER.JOB PLACEMENT SPECIALIST Work Phone: [facility] Encounters Encounter Date Encounter Type Care Provider Facility Start: 09-30-2024 ambulatory Cheyanne Martinez DATA PROCESSING EQUIPMENT REPAIRER Facility :[facility] Start: 08-04-2024 End: 08-04-2024 ambulatory Cheyanne Martinez DATA PROCESSING EQUIPMENT REPAIRER Facility:[facility] Start: 08-09-2023 Non-patient / Non-visit Dr. Bipin Varma Work Phone: [facility] Start: 08-09-2023 End: 08-09-2023 Admission to same day surgery center Dr. Bipin Varma Work Phone: [facility] Work Phone: Start: 08-09-2023 End: 08-09-[address] Bipin Varma Work Phone: [facility] Work Phone: Start: 08-03-2023 Non-patient / Non-visit Dr. Bipin Varma Work Phone: [facility] Surgical [facility] Work Phone: Start: 07-14-2023 End: 07-14-2023 ambulatory [facility] Work Phone: Start: 07-14-2023 End: 07-14-2023 Patient encounter procedure [facility], [facility] Work Phone: Start: 06-09-2023 End: 06-09-2023 ambulatory [facility] Work Phone: Start: 06-09-2023 End: 06-09-2023 Patient encounter procedure [facility] Start: 12-15-2022 End: 12-15-2022 ambulatory Facility:[facility] Start: 12-15-2022 End: 12-15-2022 Emergency department patient visit [facility] Work Phone: Start: 12-15-2022 End: 12-15-2022 Patient encounter procedure Avi Betancur MICHAEL.JOB PLACEMENT SPECIALIST Work Phone: [facility] Comment on above: Procedure not sissy d out (Primary Dx) Procedures Date Procedure Procedure Detail Performing Clinician Start: 08-09-[address] Freddy Varma Work Phone: Start: 07-14-2023 CT of chest Start: 12-15-2022 CT of head without contrast Plan of Treatment Date Care Activity Detail Author Start: 08-09-2023 Patient discharge [facility] Start: 12-11-2022 Influenza vaccination INFLUENZA (#1) [facility] Start: 04-12-2022 DEPRESSION ASSESSMENT DEPRESSION ASSESSMENT [facility] Start: 12-26-2018 PROSTATE CANCER SCREENING DISCUSSION PROSTATE CANCER SCREENING DISCUSSION [facility] Start: 12-26-2013 SHINGRIX VACCINE (1 of 2) SHINGRIX VACCINE (1 of 2) [facility] Start: 12-26-2008 COLOGUARD (FIT-DNA) COLOGUARD (FIT-DNA) [facility] Start: 12-26-2008 Colonoscopy COLONOSCOPY [facility] Start: 12-26-2008 COLORECTAL CANCER SCREENING COLORECTAL CANCER SCREENING [facility] Start: 12-26-[address] COLONOGRAPHY [facility] Start: 12-26-2008 DIABETES SCREEN DIABETES SCREEN [facility] Start: 12-26-2008 FECAL OCCULT BLOOD FECAL OCCULT BLOOD [facility] Start: 12-26-2008 SIGMOIDOSCOPY SIGMOIDOSCOPY [facility] Start: 12-26-1998 LIPID SCREEN LIPID SCREEN [facility] Start: 12-26-1982 Urine microalbumin profile DTAP,TDAP,TD (1 - Tdap) [facility] Start: 12-26-1981 HEPATITIS C SCREENING HEPATITIS C SCREENING [facility] Start: 12-26-1981 HIV SCREENING HIV SCREENING [facility] Start: 06-25-1964 COVID-19 VACCINE (#1) COVID-19 VACCINE (#1) [facility] Start: 1965 HEPATITIS B (1 of 3 - 3-dose series) HEPATITIS B (1 of 3 - 3-dose series) [facility] Colonoscopy [facility] Patient Education ED Hypertensio n New Begin Treatment [facility] Work Phone: Patient referral [facility] Work Phone: Payers Date Payer Category Payer Self-pay 2018 Unknown [id number] 2018 Unknown MMO [employer] PPO [id number] 2018-Present [phone] [address] [place] [address] PPO [id number] Unknown [id number] Unknown [id number] Social History Date Type Detail Facility Start: 12-15-2022 End: 08-09-2023 Tobacco smoking status WIIS Unknown if ever smoked [facility] Start: 1965 Sex Assigned At Male W [facility] Start: 1965 Sex Assigned At Not on file [facility] Gender identity Not on file [facility] inic Goals Date Patient Goal Desired Activity /State Mental Status Date Assessment Result Facility 08-09-2023 Cognitive function Voice/Name [facility] Work Phone: 12-15-2022 Cognitive function Level Of Cons ciousness Awake;Alert;Appropriate;Follow s Commands [facility] Work Phone: Procedure note 08-09-2023 Note Date & Type Note Facility 08-09-2023 Procedure note [facility] Procedure note 08-09-2023 Note Date & Type Note Facility 08-09-2023 Procedure note [facility] Discharge summary 12-15-2022 Note Date & Type Note Facility 12-15-2022 Discharge summary Note Date/Time December 15, 2022 9:31am [facility] Medical Records Department [address] [place] [address] Emergency Department Summary 12/15/22 MR#: [id number] Acct: [id number] Name: RODNEY HAYES Rep #:[id number] : 1965 56 From: Jcarlos El MD PCP: Care Physician,No Primary Status :REG ER Location: ED HPI History of Present Illness Chief Complaint: Hypertension Detail of Chief Complaint: Not feeling right. Purchased a blood pressure machine. Pressures elevated Informant: patient Onset/Context/Timing Onset: Today and Yesterday Context: - (Unknown) Timing: Continuous Quality: Not feeling right Location: Generalized Current Severity: Mild Maximum Severity: Moderate Worsened by: Nothing Relieved by: Nothing Associated Symptoms Associated Symptoms: Nothing Narrative Narrative: Patient is a 56-year-old male who is a smoker and drinks heavily on weekends whopresents because of multiple elevated blood pressure readings. Has not seen a physician in 30 years. He denies drug use. He complains of head fullness. Does not complain of headache. He denies double vision, blurred vision loss of vision. He denies ringing's ears or decreased hearing. He denies trouble with speech or swallowing. He denies problems with balance or coordination. He denies weakness of his upper or lower extremities. He denies altered sensation of his upper or lower extremities. He states he has not had a drink since Wednesday. Prior similar symptoms: No Recent Illness/Hospitalization: No PFSH PFSH Medical History no medical history no medical history Home Medications lisinopril 10 mg tablet 10 mg PO DAILY #30 tabs 12/15/22 [Rx Last Taken Unknown] Allergy/AdvReac Type Severity Reaction Status Date / Time No Known Allergies Allergy Verified 12/15/22 09:11 Social History (Updated 12/15/22 @ 09:[address] Jcarlos El MD) household members: none Smoking Status: Current every day smoker tobacco type: cigarettes alcohol intake: current alcohol intake frequency: 3 or more drinks per day substance use type: does not use ROS ROS ED Constitutional Constitutional ED: Denies chills, fever(s), subjective, sweats or weight loss Eyes Eyes: Denies blurry vision, change in vision or diplopia ENT ENT ED: Denies ear pain, rhinorrhea or sore throat Cardiovascular Cardiovascular: Denies chest pain, palpitations or racing heartbeat Respiratory/Chest Respiratory/Chest: Denies cough, dyspnea or dyspnea on exertion Gastrointestinal Gastrointestinal: Denies abdominal pain, nausea or vomiting Genitourinary Genitourinary ED: Denies dysuria, hematuria or urinary frequency Musculoskeletal Musculoskeletal: Reports other Details: Chronic left pectoral/shoulder pain due to prior injury ; Denies arthralgias, back pain, myalgias or neck pain Integumentary Denies rash Neurologic Neurologic: Reports headache(s); Denies paresthesias or weakness Psychiatric Psychiatric: Denies anxiety Hematologic/Lymphatic Hematologic/Lymphatic: Reports systems reviewed and no addt'l complaints, exceptas documented EXAM Physical Exam Const Vital Signs: 12/15/22 09:11 12/15/22 09:52 12/15/22 10:30 Temperature 97.8 F Temperature Source Temporal Pulse Rate 94 66 Respiratory Rate 16 16 Respiratory Pattern Normal Blood Pressure 209/101 H 151/90 H Blood Pressure Mean 137 110 Pulse Ox 100 98 Oxygen Delivery Method Room Air Room Air 12/15/22 11:30 Temperature Temperature Source Pulse Rate 70 Respiratory Rate 16 Respiratory Pattern Blood Pressure 158/98 H Blood Pressure Mean 118 Pulse Ox 98 Oxygen Delivery Method Room Air Positive well nourished and well developed General Appearance ED: well developed and NAD; Negative for cyanotic, diaphoretic or pallor HEENT Reports dry mucous membranes HEENT Narrative: Head is atraumatic normocephalic. Ears are normal. TMs are normal. Nares patent. Uvula is midline. There is no deviation tongue with protrusion. Mouth ED: Yes dry mucous membranes Mouth: dry mucous membranes Eyes PERRL and EOMs intact bilaterally Neck no lymphadenopathy, supple and no JVD Neck Narrative: No carotid bruit right or left Chest Wall inspection of chest normal and palpation of chest normal Resp normal respiratory effort and clear to auscultation bilaterally Cardio regular rate, regular rhythm, S1 normal heart sound, S2 normal heart sound and no murmurs GI normal to inspection, nondistended, normoactive bowel sounds, non-tender, non-distended and no masses; Negative for hepatosplenomegaly Back/Spine no CVA tenderness Extremity normal to inspection General Extremety ED: Negative for edema or tenderness General Extremity: Negative for edema Neuro oriented x3, CN's II-XII intact bilaterally and no sensory deficits noted Neuro Narrative: There is no dysmetria. Bicep, brachialis, triceps, patella and ankle reflex are2+ and symmetric. There is no clonus?. Patient is awake but not necessarily alert. He stated he was 57 years of age when he is 56. He did know month, day of the week, day of the month. Motor Exam: strength 5/5 throughout Psych mental status grossly normal Skin no rashes or lesions noted and skin turgor normal General Skin Exam: Negative for elasticity normal, jaundice or pallor MDM MDM MDM Narrative Medical decision making narrative: Since patient's complaint of head discomfort has nystagmus with elevated blood pressure and has not seen a physician in 30 years we will obtain baseline blood work EKG and CT looking for evidence of endorgan dysfunction. We will also monitor blood pressure. His neuro exam was nonfocal. History & Record Review Additional record(s) reviewed:: No prior records Lab Data Attestation: I reviewed the patient's lab results. Lab results narrative: There is no evidence of endorgan dysfunction. Labs: Laboratory Results - last 24 hr 12/15/22 12/15/22 09:50 10:34 WBC 4.9 RBC 5.31 Hgb 15.4 Hct 46.3 MCV 87.2 MCH 29.0 MCHC 33.3 RDW Std Deviation 40.6 RDW Coeff of Adrian 12.8 Plt Count 302 MPV 10.0 Immature Gran % (Auto) 0.200 Neut % (Auto) 62.3 Lymph % (Auto) 26.5 Love % (Auto) 8.6 Eos % (Auto) 2.0 Baso % (Auto) 0.4 Absolute Neuts (auto) 3.1 Absolute Lymphs (auto) 1.30 Nucleated RBC % 0 Sodium 137 Potassium 4.2 Chloride 105 Carbon Dioxide 27.0 Anion Gap 5 BUN 17 Creatinine 0.83 Estim Creat Clear Calc 100.17 Est GFR (MDRD) Af Amer 122 Est GFR (MDRD) Non-Af 101 BUN/Creatinine Ratio 20.5 H Glucose 104 Calcium 9.2 Urine Color Yellow Urine Clarity Clear Urine pH 8.0 Ur Specific [place] 1.015 Urine Protein 15 H Urine Glucose (UA) Normal Urine Ketones Negative Urine Occult Blood Negative Urine Nitrite Negative Urine Bilirubin Negative Urine Urobilinogen Normal Ur Leukocyte Esterase 25 H Urine RBC 0 SEEN Urine WBC 0-5 SEEN Ur Squamous Epith Cells 0 SEEN Urine Bacteria 0 SEEN Urine Mucus 0 SEEN Ethyl Alcohol < 3.0 Radiography Diagnostic Testing: Clinical Impression(s) from Imaging Studies Brain CT 12/15/22 09:54 IMPRESSION: No acute intracranial process. Electronically Signed: Maco Ragland MD at 10:28 EDT , EKG Initial EKG: Attestation: I personally reviewed and interpreted this EKG as follows: Interpretation: Sinus Rhythm (Rate is 78. The EKG is normal. MA intervalis 158 ms. Cures duration 88 ms. QT duration 3 to 58 ms. [place] is normal) Treatment and Re-Evaluation :: Patient's work-up is unremarkable and pressure has come down to 158/98 without treatment he will be discharged home with prescription for lisinopril. He was referred to Dr. Weaver since he does not have a physician. Furthermore patient did not require treatment since he has no evidence of endorgan dysfunction. Discharge Plan Triage Chief Complaint: Hypertension ED Provider: Jcarlos El Dx/Rx/DC Orders Clinical Impression: Alcohol use, Generalized weakness, Tobacco use, Hypertension Instructions: ED Hypertension New Begin Treatment Prescriptions: New lisinopril 10 mg tablet 10 mg PO DAILY Qty: 30 0RF Primary Care Provider: Care Physician,No Primary Referrals: Luis Varma MD [Med Staff - Assistant Manager Of Operations] - 1-2 Weeks NOT,DEFINED [Non-Staff] - Disposition Disposition: Home, Self Care What to do if you have Problems For any increased pain, shortness of breath, bleeding, nausea or vomiting, chestpain, or any unexpected problems, contact your Primary Care Provider. Call [facility] ([phone]) or report to the closest Emergency Room. Call 911 if necessary. 12/15/22 1159 <Electronically signed by Jcarlos El MD> Cosigner Signature (if applicable): CC: No Primary Care Physician ~ Signed [facility] Work Phone: Progress note 12-15-2022 Note Date & Type Note Facility 12-15-2022 Note HNO ID: [id number] Author: Avi Betancur APRN.BRANDON Service: ? Author Type: Nurse Practitioner Type: Progress Notes Filed: 12/15/2022 9:19 AM Note Text: Nontoxic-appearing male presents urgent care chief complaint high BP. Duration of symptoms last few days. Associated symptoms fatigue transient headache. Patient states this does not feel well. States he did drink a lot of alcohol over the weekend and thought it was due to this. Did take his blood pressure last night was 170s over 100. Presents today for evaluation. On evaluation BP was 204/100. Patient is not established with a PCP has not been seen for many years. Denies any medical history. With patient presenting symptoms I recommended patient be seen ED for further evaluation care. EMS transport was offered patient declined transport. Will be seen at [facility]. Verbalized understand agrees with plan of care. Avi Betancur APRN.BRANDON [facility] History of Present illness Narrative 12-15-2022 Avi Betancur APRN.BRANDON - 12/15/2022 8:57 AM EDT Note Date & Type Note Facility 12-15-2022 History of Presen t illness Narrative Nontoxic-appearing male presents urgent care chief complaint high BP. Duration of symptoms last few days. Associated symptoms fatigue transient headache. Patient states this does not feel well. States he did drink a lot of alcohol over the weekend and thought it was due to this. Did take his blood pressure last night was 170s over 100. Presents today for evaluation. On evaluation BP was 204/100. Patient is not established with a PCP has not been seen for many years. Denies any medical history. With patient presenting symptoms I recommended patient be seen ED for further evaluation care. EMS transport was offered patient declined transport. Will be seen at [facility]. Verbalized understand agrees with plan of care. Avi Betancur APRN.CNP documented in this encounter [facility] Evaluation note Note Date & Type Note Facility Evaluation note No assessment information availa ble [facility] Work Phone: Evaluation note Note Date & Type Note Facility Evaluation note Diagnosis Procedure not carried out- Primary Procedure not carried out for other reasons documented in this encounter [facility] Evaluation note Note Date & Type Note Facility Evaluation note Diagnosis Onset Date Encounter for screening for malignant neoplasm of colon acute [facility] Work Phone: History and physical note Note Date & Type Note Facility History and physical note Note Date/Time August 09, 2023 2:49pm [facility] Medical Records Department [address] [place] [address] History & Physical Exam 08/09/23 1448 MR#: [id number] Acct: [id number] Name: RODNEY HAYES Rep #:[id number] : 1965 57 From: Andrez de la fuente MD PCP: Dr. Bipin Varma MD Status :[facility] Location: [place] [address] HPI - General HPI Narrative RODNEY HAYES, is a 57 M who presents for screening colonoscopy patient hasnever had a colonoscopy in the past. He denies any abdominal pain or blood in the stool. He has no family history of colon cancer. He is on no blood thinners. [facility] Medical History (Updated 08/04/23 @ 12:02 by Yeimi Andrews) Gastric reflux Heartburn Hypertension Smoker Wears partial dentures Home Medications lisinopril 10 mg tablet 10 mg PO DAILY #30 tabs 12/15/22 [Rx Last Taken 08/09/23] Allergy/AdvReac Type Severity Reaction Status Date / Time No Known Allergies Allergy Verified 08/09/23 14:06 Family History (Updated 08/03/23 @ 08:47 by Erna Jay) Mother Alzheimer disease Father DDD (degenerative disc disease) Surgical History (Updated 08/04/23 @ 12:02 by Yeimi Andrews) Hx of shoulder surgery Social History household members: none Smoking Status: Current every day smoker tobacco type: cigarettes alcohol intake: current alcohol intake frequency: 3 or more drinks per day substance use type: does not use Past Medical/Surgical History Planned Operation Planned Operative Procedure/s: CSCOPE Previous Hospitalizations/Surgeries HX Hospitalizations: No Any Problems With Anesthesia: No You/Your Family Experience Fever (Hyperthermia) With Anes: No Cholinesterase deficiency: No Cardiovascular Hx Hypertension: Yes (CONTROLLED WITH MED) Respiratory Hx Sleep Apnea: No Hx Respiratory Tract Infection/Cold (presently): No Do You Snore Loudly (louder than talking or can be heard): No Do You Often Feel Tired/ Fatigued/ Sleepy Dring Daytime?: No Has Anyone Observed You Stop Breathing During Sleep?: No Result (for STOP score): Negative Smoking Status: Current every day smoker Neurological Does patient have nerve stimulator: No Reproduction : No Miscellaneous Recent Exposure to Contagious Disease: No Allergies No Known Allergies Allergy (Verified 08/09/23 14:06) Discharge Is Pt Admitted From a Retirement, or a Long Term: No After D/C, Where Do you Plan to Go: Return Home Vital Signs Vital Signs Vital Signs: 08/09/23 14:06 08/09/23 14:06 Temperature 98.2 F Temperature Source Temporal Pulse Rate 99 Respiratory Rate 16 Respiratory Pattern Normal Blood Pressure 136/85 H Blood Pressure Mean 102 Blood Pressure Source Monitor Blood Pressure Position Semi-Fowlers Blood Pressure Location Right Arm Pulse Ox 98 Oxygen Delivery Method Room Air Weight Weight: 169 lb 6.4 oz Body Mass Index (BMI) 25.0 Physical Exam Const alert and oriented x3 HEENT normocephalic Eyes PERRL Resp normal respiratory effort and normal air movement Cardio regular rate and regular rhythm GI soft to palpation, non-tender and non-distended Extremity normal to inspection Assessment & Plan Assessment/Plan (1) Encounter for screening for malignant neoplasm of colon: PLAN: I explained endoscopy in detail to the patient. I explained the risks including but not limited to stroke or heart attack with anesthesia, perforationof the GI tract, bleeding, infection. I explained that any of these could necessitate further emergency surgery. The patient understands and all questions were answered sufficiently. The patient wishes to proceed with procedure. Andrez Hilliard MD Pager: [facility] [address] [place] [address], [address] [place] [address] Office: Surgery Risks - Colonoscopy Risks Include but are not Limited To: Risks include but are not limited to: Bleeding, perforation requiring further surgery, inability to complete colonoscopy requiring barium enema. 08/09/23 1449 <Electronically signed by Andrez Hilliard MD> Cosigner Signature (if applicable): CC: Dr. Andrez Hilliard MD; Dr. Bipin Varma MD~ Signed [facility] Work Phone: Chief Complaint and Reason for Visit Chief Complaint HTN Chief Complaint Z72.0 Tobacco use Chief Complaint Z72.0 Tobacco use Amb Documentation Reason for Visit Encounter for screen ing for malignant neoplasm of colon Advance Directives No Advanced Directives Records Found Advance Directive Response Recorded Date/ Time Living Will No December 15 9:52am Power of Equity Sales Assistant No December 15, 2022 9:52am Advance Directive Response Recorded Date/ Time Living Will No December 15 023 8:52am Power of Equity Sales Assistant No December 15, 2022 8:52am Advance Directive Response Recorded Date/ Time Living Will No August 04, 2023 11:57am Power of Equity Sales Assistant No August 03 11:57am Summary Purpose Family History No Family History Records Found Relationship Condition Age at Onset Recorded Date/T gregg mother Alzheimer's disease Unknown father Degeneration of intervertebral disc Unkno wn Additional Source Comments Care Teams (unrecognized sec tion and content) Team Status: Active Member Role Status Dates Dr. John Gillis DO Family Provider Active No Primary Care Physician Primary Care Provider Active Team Status: Inactive Member Role Status Dates Dr. Jcarlos El MD Emergency Provider Active No Primary Care Physician Primary Care Provider Active Team Status: Inactive Member Role Status Dates No Primary Care Physician Primary Care Provider Active Dr. Luis Varma MD Attending Provider Active Team Status: Active Member Role Status Dates Dr. John Gillis DO Family Provider Active Dr. Bipin Varma MD Primary Care Provider Acti ve Team Status: Inactive Member Role Status Dates No Primary Care Physician Primary Care Provider Active Dr. Bipin Varma MD Attending Provider Active Team Status: Inactive Member Role Status Dates Dr. Bipin Varma MD Primary Care Provider, Attending Provider, Referring Provider Active Team Status: Active Member Role Status Dates Dr. Bipin Varma MD Primary Care Provider Acti ve Count Includes [facility] Attending Provider Active Team Status: Active Member Role Status Dates Dr. Bipin Varma MD Primary Care Provider, Ref erring Provider Active Dr. Andrez Hilliard MD Attending Provider, Other Provider Active Team Status: Inactive Member Role Status Dates Dr. Bipin Varma MD Primary Care Provider, Ref erring Provider Active Dr. Andrez Hilliard MD Attending Provider Active Goals (unrecognized section and content) Goals may be documented in a n alternate sectionGoals may be documented in an alternate sectionGoals may be documented in an alternate section (unrecognized sect ion and content) No Status Records FoundNo Status Records Found INFORMATION SOURCE (unrecogn ized section and content) DATE CREATED AUTHOR 12/15/[address] [facility] DATE CREATED AUTHOR AUTHOR'S ORGANIZ ATION 09/20/2024 [facility] Source Comments (unrecognize d section and content) In the event this informatio n is protected by the Federal Confidentiality of Alcohol and Drug Abuse Patient Records regulations: The Federal rules restrict any use of the information to criminally investigate or prosecute any alcohol or drug abuse patient.[facility] Reason for Visit (unrecogniz ed section and content) Reason Comments Blood Pressure FOR RECORDS PERTAINING TO PATIENTS WHO ARE OR HAVE BEEN ENROLLED IN A CHEMICAL DEPENDENCY/SUBSTANCEABUSE PROGRAM, SOME INFORMATION MAY BE OMITTED. This clinical summary was aggregated from multiple sources. Caution should be exercised in using it in the provision of clinical care. This summary normalizes information from multiple sources, and as a consequence, information in this document may materially change the coding, format and clinical context of patient data. In addition, data may be omitted in some cases. CLINICAL DECISIONS SHOULD BE BASED ON THE PRIMARY CLINICAL RECORDS. [facility]. provides no warranty or guarantee of the accuracy or completeness of information in this document.
== END | disposition home or self-care (01) ==
PROVIDERS: PCP Family Medicine; Referring Provider Nurse Practitioner Family; Visit Provider Nurse Practitioner Family
DX: Z12.2 Encounter for screening for malignant neoplasm of respiratory organs (principal)
CPT/HCPCS: 71271